=== PATIENT | female | born 1980 | race Caucasian/White ===

== ENCOUNTER → 2016-11-15 | Outpatient (CLI) | payer BC ==
--- NOTE | 2016-11-15 12:37 | KCIC ---
Ultrasound Pelvis Indication:Reason For Study Reason: IUD PLACEMENT / Spl. Instructions: / History: Technique: Multiple real-time grayscale images were obtained over the pelvis transabdominally and transvaginally. Color Doppler imaging was utilized. Findings: The uterus is normal in size measuring 10.5 x 4.6 x 3.7 cm. An intrauterine contraceptive device is in place within the endometrial canal. The right ovary measures 3.9 x 2.2 x 2.0cm. No abnormal right ovarian lesions are identified. Normal blood flow is identified. The left ovary measures 2.9 x 2.3 x 2.3cm. No abnormal left ovarian lesions are identified. Normal blood flow is identified. No pelvic free fluid is identified. Impression: Intrauterine contraceptive device is in appropriate position. Electronically signed by: Christiano Castillo (Nov 15, 2016 12:35:44)
== END | disposition home or self-care (01) ==
LOC: KCIC US 10:59
PROVIDERS: ATTEND Physician Assistant Surgical
DX: Z30.430 Encounter for insertion of intrauterine contraceptive device (principal)
CPT/HCPCS: 76830; 76856